=== PATIENT | male | born 2000 | race Caucasian/White ===

== ENCOUNTER 2023-03-01 20:47 | Emergency (ER) | payer BC, OTHER | END 2023-03-01 22:35 | disposition home or self-care (01) | LOC: ERS 20:47 | DX: M25.512 Pain in left shoulder (principal); V89.2XXA Person injured in unspecified motor-vehicle accident, traffic, initial encounter; W22.11XA Striking against or struck by driver side automobile airbag, initial encounter; Y92.410 Unspecified street and highway as the place of occurrence of the external cause ==